=== PATIENT | male | born 1975 | race Caucasian/White ===

== ENCOUNTER 2017-03-23 20:37 | Emergency (ER) | payer OTHER ==
[~2017-03-23] VITALS: Ht 185.4 cm; Wt 116.1 kg
[~2017-03-23 20:37] MED LIST: CELEBREX PO; COLACE100 MG PO; DESYREL 150 MG150 MG PO; LYRICA75 MG PO; PANTOPRAZOLE PO; PERCOCET 10/1 TABLET PO; PROAIR HFA8.5 GM IH; TIZANIDINE HCL4 MG PO; [UNRECOGNIZED DRUG - OTHER] TP
[2017-03-23] MEDS ORDERED: VOLTAREN75 MG PO (22:06)
[2017-03-23 22:25] VITALS: BP 132/58
== END 2017-03-23 22:26 | disposition home or self-care (01) ==
LOC: EME 20:37
DX: S43.402A Unspecified sprain of left shoulder joint, initial encounter (principal); X50.9XXA Other and unspecified overexertion or strenuous movements or postures, initial encounter; Y99.0 Civilian activity done for income or pay; K21.9 Gastro-esophageal reflux disease without esophagitis; Z88.0 Allergy status to penicillin
CPT/HCPCS: 73030; 99281; 99284